=== PATIENT | male | born 1950 | race Caucasian/White ===

== ENCOUNTER 2020-10-11 10:44 | Inpatient (IN) | payer SELFPAY ==
[2020-10-11 10:45] VITALS: BP 134/79
[2020-10-11 11:04] LABS: BASO % 0.5 % (0.0-1.0); EOS % 0.2 % (1.0-4.0); HEMATOCRIT 42.8 % (42.0-52.0); LYMPH # 0.9 10*3/uL (1.3-4.4); LYMPH % 20.4 % (27.0-41.0); MEAN CELL VOLUME 85.3 fl (80.0-94.0); MEAN CORPUSCULAR HGB 29.9 pg (27.0-31.0); MEAN PLATELET VOLUME 11.2 fl (9.6-12.3); MONO # 0.8 10*3/uL (0.1-1.0); MONO % 18.3 % (3.0-9.0); NEUT # 2.6 10*3/uL (2.3-7.9); NEUT % 60.4 % (47.0-73.0); PLATELET COUNT AUTOMATED 138 10*3/uL (130-400); RED BLOOD COUNT 5.02 10*6/uL (4.50-5.90); RED CELL DISTRI WIDTH 13.5 % (0-14.5); WHITE BLOOD COUNT 4.3 10*3/uL (4.8-10.8)
[2020-10-11 11:22] LABS: ALBUMIN 3.8 gm/dl (3.1-4.5); ALKALINE PHOSPHATASE 105 U/L (45-117); BUN 24 mg/dl (7-24); CHLORIDE 87 mmol/L (98-107); CREATININE 1.18 mg/dL (0.70-1.30); LIPASE 41 U/L (73-393); POTASSIUM 3.3 mmol/L (3.5-5.1); SGOT/AST 18 IU/L (3-35); SGPT/ALT 22 U/L (12-78); SODIUM 126 mmol/L (136-145); TOTAL PROTEIN 7.9 gm/dL (6.4-8.2)
[2020-10-11 11:24] LABS: TROPONIN I < 0.015 ng/ml (<0.045)
[2020-10-11 13:10] VITALS: BP 129/78
[2020-10-11] MEDS ORDERED: ZOFRAN4 MG PO (14:54)
[2020-10-11 16:07] VITALS: BP 154/84
[2020-10-11 18:22] LABS: BUN 22 mg/dl (7-24); CHLORIDE 95 mmol/L (98-107); CREATININE 1.06 mg/dL (0.70-1.30); POTASSIUM 3.4 mmol/L (3.5-5.1); SODIUM 131 mmol/L (136-145)
[2020-10-11 20:00] VITALS: BP 123/73
[2020-10-11 21:56] LABS: BILIRUBIN Negative (Negative); BLOOD Negative (Negative); CLARITY Clear (Clear); COLOR Yellow (Yellow); GLUCOSE Negative (Negative); KETONE 2+ (Negative); LEUKO ESTERASE Negative (Negative); NITRITE Negative (Negative); PH 6.5 (4.5-8.0); SPECIFIC GRAVITY 1.015 (1.001-1.030)
[2020-10-11 22:05] LABS: MUCOUS TRACE
[2020-10-11 22:06] LABS: FINE GRANULAR CAST 0-2
[2020-10-11 22:14] LABS: URINE CHLORIDE, RANDOM < 10 mmol/L
[2020-10-12] VITALS: BP 127/83
[2020-10-12 06:04] LABS: BASO % 0.5 % (0.0-1.0); EOS # 0.1 10*3/uL (0.0-0.4); EOS % 1.6 % (1.0-4.0); LYMPH # 1.1 10*3/uL (1.3-4.4); LYMPH % 28.8 % (27.0-41.0); MEAN CORPUSCULAR HGB 29.4 pg (27.0-31.0); MEAN CORPUSCULAR HGB CONC 33.4 g/dl (33.0-37.0); MEAN PLATELET VOLUME 11.5 fl (9.6-12.3); MONO # 0.7 10*3/uL (0.1-1.0); MONO % 17.9 % (3.0-9.0); NEUT % 50.9 % (47.0-73.0); PLATELET COUNT AUTOMATED 110 10*3/uL (130-400); RED BLOOD COUNT 4.66 10*6/uL (4.50-5.90); RED CELL DISTRI WIDTH 13.7 % (0-14.5); WHITE BLOOD COUNT 3.9 10*3/uL (4.8-10.8)
[2020-10-12 06:22] LABS: ALBUMIN 3.5 gm/dl (3.1-4.5); ALKALINE PHOSPHATASE 91 U/L (45-117); BUN 18 mg/dl (7-24); CHLORIDE 99 mmol/L (98-107); CHOLESTEROL 143 mg/dL (<200); CREATININE 0.97 mg/dL (0.70-1.30); FREE T4 1.06 ng/dl (0.76-1.46); LDL CHOLESTEROL 85 mg/dL (9-159); POTASSIUM 3.8 mmol/L (3.5-5.1); SGOT/AST 11 IU/L (3-35); SGPT/ALT 20 U/L (12-78); SODIUM 136 mmol/L (136-145); TOTAL PROTEIN 6.8 gm/dL (6.4-8.2); TRIGLYCERIDES 104 mg/dl (<150)
[2020-10-12 06:26] LABS: THYROID STIM HORMONE (HS) 0.221 uIU/ml (0.358-4.75)
[2020-10-12 07:59] LABS: VITAMIN D, 25-HYDROXY 26.2 ng/mL (30-100)
[2020-10-12 08:00] VITALS: BP 134/76
[2020-10-12 12:00] VITALS: BP 128/70
== END 2020-10-12 17:36 | disposition home or self-care (01) | DRG 641 ==
LOC: ED 10:44 → EDHOLD 12:30 → 5E 12:47
PROVIDERS: Emergency Medicine; Internal Medicine; ADMIT Internal Medicine; ATTEND Internal Medicine
DX: E87.1 Hypo-osmolality and hyponatremia (principal); E44.1 Mild protein-calorie malnutrition; E87.6 Hypokalemia; E83.41 Hypermagnesemia; E80.6 Other disorders of bilirubin metabolism; E87.2 Acidosis; R73.9 Hyperglycemia, unspecified; E87.8 Other disorders of electrolyte and fluid balance, not elsewhere classified; K21.9 Gastro-esophageal reflux disease without esophagitis; Z82.49 Family history of ischemic heart disease and other diseases of the circulatory system; Z79.899 Other long term (current) drug therapy; Z68.23 Body mass index [BMI] 23.0-23.9, adult